=== PATIENT | female | born 1965 | race Caucasian/White ===

== ENCOUNTER 2019-09-05 19:02 | Emergency (ER) | payer OTHER, SELFPAY ==
--- NOTE | ~2019-09-05 | XR_ITS ---
EXAMINATION: XR foot LT min 3V DATE: 09/05/2019 19:32 INDICATION: Left foot lateral pain. TECHNIQUE: 4 views of left foot were obtained. COMPARISON: None. FINDINGS: Bone alignment is normal. No fracture. Joint spaces are well maintained. There are enthesop hytes at the posterior and plantar aspects of calcaneal tuberosity. IMPRESSION: 1. No fracture. Reviewed, dictated and finalized at location A. IMPRESSION: 1. No fracture.
[2019-09-05 19:14] VITALS: BP 142/73; PULSE 81; RESP 16; TEMP 36.1; O2SAT 97
--- NOTE | 2019-09-05 19:18 | ED.EXTPRO ---
HPI - Extremity Problem General Chief complaint: Extremity Problem,Nontraumatic Stated complaint: left foot,right knee pain Time Seen by Provider: 09/05/19 19:18 Source: patient Mode of arrival: ambulatory Limitations: no limitations History of Present Illness HPI Narrative: Greta Lees is a 54 yo female with a PMH of depression, hypothyroid,neuropathy, chronic back pain,HSV suppression, who has had R knee pain for months and L foot lateral pain with walking after foot snapped on Thurs. has had some left foot pain prior to this incident. Mild swelling of left lateral foot; will see orthopedist with R knee pain (has had menisectomy on both) Related Data Home Medications Medication Instructions Recorded Confirmed cyclosporine [Restasis] 0.05 % DAILY 09/05/19 09/05/19 duloxetine 30 mg PO DAILY 09/05/19 09/05/19 estradiol 2 mg DAILY 09/05/19 09/05/19 folic acid 1 mg DAILY 09/05/19 09/05/19 hydrochlorothiazide 50 mg DAILY 09/05/19 09/05/19 levothyroxine [Synthroid] 75 mcg DAILY 09/05/19 09/05/19 meloxicam 15 mg DAILY 09/05/19 09/05/19 prednisone 5 mg DAILY 09/05/19 09/05/19 progesterone micronized 200 mg DAILY 09/05/19 09/05/19 sertraline 100 mg DAILY 09/05/19 09/05/19 valacyclovir 500 mg DAILY 09/05/19 09/05/19 Allergies Allergy/AdvReac Type Severity Reaction Status Date / Time codeine Allergy Unknown HEART Verified 09/05/19 19:08 PALPITATION ketorolac Allergy Unknown Anaphylactic Verified 09/05/19 19:35 Shock morphine Allergy Unknown HEART Verified 09/05/19 19:08 PALPITATION Sulfa (Sulfonamide Allergy Unknown Anaphylactic Verified 09/05/19 19:35 Antibiotics) Shock Review of Systems Review of Systems: Narrative: CONSTITUTIONAL: Denies fever, chills, sweats. EYES: Denies visual changes, redness, discharge. ENT: Denies rhinorrhea, congestion, sore throat, otalgia. CARDIOVASCULAR: Denies chest pain, palpitations, edema. RESPIRATORY: Denies dyspnea, wheezing, cough GASTROINTESTINAL: Denies abdominal pain, nausea, vomiting, diarrhea. GENITOURINARY: Denies dysuria, hematuria, abnormal discharge SKIN: Denies rash or itching. NEUROLOGIC: Denies numbness, or focal weakness. PSYCHIATRIC: Denies anxiety or depression. Left foot pain lateral dorsum; right knee pain PMFSH Past Medical History Medical History (Updated 09/05/19 @ 19:42 by Zoya Centeno CNP) HSV (herpes simplex virus) infection Family History Family History Other High cholesterol Social History Social History Smoking status: Never smoker Substance use: never Gender identity (if verbalized by the patient): Female Comments At time of signature, I agree with nursing past medical, surgical, social and family history. There is no relevant family history pertinent to the presenting complaint. At this visit recommended that she follow-up with her primary care physician Exam Narrative: Exam Narrative: GENERAL: This is a well-nourished, well-developed patient, in mild distress. HEAD: normocephalic, atraumatic. EYES:Sclera clear/white. Vision is grossly intact. EARS: External ears normal,. Hearing grossly intact. NOSE: External nose normal without nasal discharge, nares without redness, no rhinorrhea. THROAT: Mucous membranes moist, NECK: Neck supple, CARDIOVASCULAR: Regular rate and rhythm without murmurs, gallops, or rubs. RESPIRATORY: Clear to auscultation. Breath sounds equal bilaterally. No wheezes, rales, or rhonchi. GASTROINTESTINAL: Abdomen soft, SKIN: warm, intact with no suspicious lesions or rash, good texture and turgor. NEURO: awake, alert, and oriented to person, place and time. There were no obvious focal neurologic abnormalities. Steady gait EXTREMITIES: Normal range of motion. Describes right medial knee pain; walks without difficulty. Pain on lateral left foot on dorsum with mild swelling and te
== END 2019-09-05 19:59 | disposition home or self-care (01) ==
PROVIDERS: Emergency Provider Nurse Practitioner
DX: M79.672 Pain in left foot (principal); E03.9 Hypothyroidism, unspecified
CPT/HCPCS: 73630; 99213; G0463

== ENCOUNTER → 2020-07-19 11:54 | Outpatient (CLI) | payer OTHER, SELFPAY ==
--- NOTE | ~2020-07-19 | XR_ITS ---
EXAMINATION: XR hand LT 2V DATE: 07/19/2020 12:16 INDICATION: Psoriatic arthritis. TECHNIQUE: 2 views of left hand were obtained. COMPARISON: None. FINDINGS: Bone alignment is normal. No fracture. There is mild osteoarthritis of triscaphe joint, fir st carpometacarpal joint, and second, third, and fifth distal interphalangeal joints. IMPRESSION: 1. Mild polyarticular osteoarthritis. Reviewed, dictated and finalized at location A.
--- NOTE | ~2020-07-19 | XR_ITS ---
EXAMINATION: XR wrist RT min 3V DATE: 07/19/2020 12:16 INDICATION: Psoriatic arthritis. TECHNIQUE: 4 views of right wrist were obtained. COMPARISON: None. FINDINGS: Bone alignment is normal. No fracture. There is mild osteoarthritis of first carpometacarpa l joint. IMPRESSION: 1. Mild osteoarthritis of first carpometacarpal joint. Reviewed, dictated and finalized at location A.
--- NOTE | ~2020-07-19 | XR_ITS ---
EXAMINATION: XR wrist LT min 3V DATE: 07/19/2020 12:16 INDICATION: Psoriatic arthritis. TECHNIQUE: 4 views of left wrist were obtained. COMPARISON: None. FINDINGS: Bone alignment is normal. No fracture. There is mild osteoarthritis of triscaphe joint and first carpometacarpal joint. IMPRESSION: 1. Mild polyarticular osteoarthritis. Reviewed, dictated and finalized at location A.
--- NOTE | ~2020-07-19 | XR_ITS ---
EXAMINATION: XR hand RT 2V DATE: 07/19/2020 12:16 INDICATION: Psoriatic arthritis. TECHNIQUE: 2 views of right hand were obtained. COMPARISON: None. FINDINGS: Bone alignment is normal. No fracture. There is mild osteoarthritis of first carpometacarpa l joint, first interphalangeal joint, fifth proximal interphalangeal joint, and second and fifth dist al interphalangeal joints. IMPRESSION: 1. Mild polyarticular osteoarthritis. Reviewed, dictated and finalized at location A.
== END ==
DX: L40.50 Arthropathic psoriasis, unspecified (principal); M89.49 Other hypertrophic osteoarthropathy, multiple sites
CPT/HCPCS: 73110; 73120

== ENCOUNTER → 2021-10-12 11:07 | Outpatient (CLI) | payer OTHER, SELFPAY ==
--- NOTE | ~2021-10-12 | XR_ITS ---
XR foot LT min 3V DATE: 10/12/2021 13:07 INDICATION: Left ankle and foot pain TECHNIQUE: 4 views COMPARISON: 09/05/2019 left foot FINDINGS: There is mild plantar and posterior calcaneal enthesopathy without associated erosive alberto e or periostitis. Mild osteoarthritis at the first metatarsophalangeal joint. No fracture, dislocation, periosteal reaction or bone destruction. IMPRESSION: Mild plantar and posterior calcaneal enthesopathy Mild osteoarthritis at the first metatarsophalangeal joint Reviewed, dictated and finalized at location B.
--- NOTE | ~2021-10-12 | XR_ITS ---
XR ankle LT min 3V DATE: 10/12/2021 13:07 INDICATION: Left ankle pain TECHNIQUE: 3 views COMPARISON: None FINDINGS: No fracture or dislocation of the ankle or disruption of the ankle mortise. Minimal distal Achilles tendon calcification. Mild plantar and minimal posterior calcaneal enthesopathy. IMPRESSION: Minimal distal Achilles tendon calcification Plantar and posterior calcaneal enthesopathy Reviewed, dictated and finalized at location B.
--- NOTE | ~2021-10-12 | XR_ITS ---
XR_CERV2-3V_CR DATE: 10/12/2021 13:06 INDICATION: Neck pain TECHNIQUE: Standing AP, lateral, open-mouth and swimmer views COMPARISON: 12/07/2014 cervical spine FINDINGS: C1 and C2 are normally aligned and the odontoid process is intact. Moderate degenerative disc disease at C2-3. Mild anterolisthesis at C4-5. Moderately severe degenerative disc disease at C5-6 and C6-7, with anterior and posterior spurring. Uncovertebral joint spurring is noted in particular at C5-6 and C6-7. Prominent degenerative change o f the apophyseal joints of the cervical spine. No fracture or dislocation or locked facet or prevertebral soft tissue swelling. IMPRESSION: Cervical spondylosis including moderately severe degenerative disc disease and uncoverteb ral joint spurring at C5-6 and C6-7, mild anterolisthesis at C4-5 Reviewed, dictated and finalized at Location A. Reviewed, dictated and finalized at location B. IMPRESSION: Cervical spondylosis including moderately severe degenerative disc disease and uncovertebral joint spurring at C5-6 and C6-7, mild anterolisthesis at C4-5
--- NOTE | ~2021-10-12 | XR_ITS ---
XR thoracic spine 2V DATE: 10/12/2021 13:06 INDICATION: Mid back pain TECHNIQUE: AP, lateral views COMPARISON: 10/12/2021 cervical spine including swimmer's projection FINDINGS: Osteopenia. Mild levoscoliosis of the thoracic spine. The thoracic pedicles are intact. No fracture or bone destruction. There is mild to moderate degenerative spurring particularly in the midthoracic region. No paraspinal soft tissue thickening. IMPRESSION: Mild to moderate spurring of the thoracic spine involving particularly the mid thoracic r egion Mild levoscoliosis Osteopenia Reviewed, dictated and finalized at location B. IMPRESSION: Mild to moderate spurring of the thoracic spine involving particula rly the mid thoracic region Mild levoscoliosis Osteopenia
--- NOTE | ~2021-10-12 | XR_ITS ---
XR lumbar spine 2-3V DATE: 10/12/2021 13:07 INDICATION: Low back pain TECHNIQUE: AP, lateral and coned lateral lumbosacral standing views COMPARISON: 12/07/2014 lumbar spine FINDINGS: There is mild thoracolumbar dextroscoliosis. The lumbar vertebrae are normally aligned, wit hout evidence of fracture or bone destruction. The lumbar pedicles are intact. There is mild degenerative disc disease is slight spurring at L2-3, L3-4. There is moderate degenerative disease at L4-5. Mild loss of disc space height at L5-S1. The sacroiliac joints are normal. IMPRESSION: Mild to moderate degenerative disc disease of the lumbar spine Mild thoracolumbar dextroscoliosis Reviewed, dictated and finalized at location B.
== END ==
PROVIDERS: PCP Internal Medicine; Visit Provider Chiropractor
DX: M19.072 Primary osteoarthritis, left ankle and foot (principal); M41.9 Scoliosis, unspecified; M47.817 Spondylosis without myelopathy or radiculopathy, lumbosacral region; M47.815 Spondylosis without myelopathy or radiculopathy, thoracolumbar region; M77.32 Calcaneal spur, left foot; M47.812 Spondylosis without myelopathy or radiculopathy, cervical region
CPT/HCPCS: 72040; 72070; 72100; 73610; 73630

== ENCOUNTER → 2021-11-05 11:09 | Outpatient (CLI) | payer OTHER, SELFPAY ==
--- NOTE | ~2021-11-05 | DEXA_ITS ---
Bone Density Report Name: FAVIO CHEW Age: 56 Sex: Female Ethnicity: White Date of : 1965 Indication: postmenopausal; screening for osteoporosis; height loss; history of glucocorticoids; hysterectomy; Referring Provider: Mateusz, Thao Bunch Study: Bone densitometry was performed. Exam Date: November 05, 2021 Accession number: [id number] Bone Density: Region BMD T-score Z-score Classification AP Spine (L1-L4) 1.094 0.4 1.7 Normal Femoral Neck (Left) 0.805 -0.4 0.8 Normal Total Hip (Left) 1.022 0.7 1.5 Normal Femoral Neck (Right) 0.823 -0.2 1.0 Normal Total Hip (Right) 0.988 0.4 1.2 Normal Total Hip Mean 1.005 0.6 1.4 Normal World Health Organization criteria for BMD impression classify patients as: Normal (T-score at or above -1.0), Osteopenia (T-score between -1.0 and -2.5), or Osteoporosis (T-score at or below -2.5). 10-year Fracture Risk: FRAX not reported because: All T-scores for Spine Total, Hip Total, Femoral Neck at or above -1.0 Clinical Information Provided by Patient: Has taken Glucocorticoids Has the following medical conditions: Hysterectomy Patient maximum height was 68.5 Menopause Age: 41 No regular weight bearing exercise Does not regularly consume dairy products Drinks caffeinated beverages Onset of menses at age 10 Number of children 2 Impression: The patient has normal bone mass. The patient has risk factors, including: history of glucocorticoid therapy. Discussion: BONE DENSITY IS ABOVE THE MINIMUM DESIRABLE LEVEL AT ALL SKELETAL SITES TESTED. This patient?s bone mineral density is above the minimum desirable level (T-score -1.0 or better) at all sites measured. The patient should follow a healthful lifestyle (good nutrition with adequate calcium and vitamin D, and appropriate weight-bearing exercise). Follow-Up: Consider repeating this study in 5 years or sooner if there is some new clinical indication. Reported by: MELISSA on 11/05/2021 11:27:00 AM. Reviewed, dictated and finalized at location [facility]
== END ==
PROVIDERS: PCP Physician Assistant; Visit Provider Internal Medicine Endocrinology, Diabetes & Metabolism
DX: N95.1 Menopausal and female climacteric states (principal)
CPT/HCPCS: 77080

== ENCOUNTER 2022-04-16 11:26 | Outpatient (CLI) | payer OTHER, SELFPAY ==
--- NOTE | ~2022-04-16 | XR_ITS ---
Clinical Indication: Shortness of breath PA and lateral views of the chest: Comparison: None Findings: The lungs are clear, without evidence of focal consolidation or pleural effusion. Cardiome diastinal silhouette is within normal limits. Bones and soft tissues are unremarkable. Impression: Normal chest. Reviewed, dictated and finalized at [facility]. NE RIGGER Impression: Normal chest.
== END 2022-04-16 11:27 ==
LOC: MICIMG 11:30
PROVIDERS: PCP Physician Assistant; Visit Provider Physician Assistant
DX: R06.02 Shortness of breath (principal); R05.9 Cough, unspecified
CPT/HCPCS: 71046

== ENCOUNTER → 2023-01-06 10:56 | Outpatient (CLI) | payer OTHER, SELFPAY ==
--- NOTE | ~2023-01-06 | XR_ITS ---
EXAMINATION: XR cervical spine 4-5V DATE: 01/06/2023 11:53 INDICATION: Neck pain. TECHNIQUE: 7 views of cervical spine including standing views and flexion and extension views were ob tained. COMPARISON: Cervical spine radiographs 10/12/2021 FINDINGS: There is 2 mm retrolisthesis of C5 on C6. There is kyphosis of lower cervical spine. There is no abnormal motion with flexion or extension. Vertebral body heights are normal. There is mildly d ecreased disc height at C4-C5 and severely decreased disc height at C5-C6 and C6-C7. There is ankylos is of the facet joints at C2-C3. There is multilevel facet joint osteoarthritis, severe on the right at C3-C4 and on the left at C4-C5. There is multilevel uncovertebral joint osteoarthritis, severe lien aterally at C5-C6 and C6-C7. There is mild central canal stenosis at C5-C6 and C6-C7. No prevertebral soft tissue swelling. IMPRESSION: 1. Severe cervical spondylosis. 2. Ankylosis of the facet joints at C2-C3. Reviewed, dictated and finalized at location E.
== END ==
PROVIDERS: PCP Chiropractor; Visit Provider Chiropractor
DX: M54.2 Cervicalgia (principal); M43.02 Spondylolysis, cervical region; M43.22 Fusion of spine, cervical region
CPT/HCPCS: 72050

== ENCOUNTER → 2023-01-10 10:13 | Outpatient (CLI) | payer OTHER, SELFPAY ==
--- NOTE | ~2023-01-10 | XR_ITS ---
Lumbosacral Spine: AP and lateral views Clinical History: Pain Findings: The normal lordotic curve is maintained. The vertebral bodies and posterior elements are i ntact. There is advanced facet arthropathy at L4-L5 and L5-S1. There is mild to moderate facet arthro prema in the upper lumbar spine. There is mild degenerative disc narrowing at L4-L5 and L5-S1. The sa croiliac joints are normally outlined. Impression: Moderate to advanced degenerative spondylosis of the lower lumbar spine. Please see details above. Reviewed, dictated and finalized at location M. Impression: Moderate to advanced degenerative spondylosis of the lower lumbar spine. Please see details above.
--- NOTE | ~2023-01-10 | XR_ITS ---
Thoracic spine: Clinical Indication: Back pain AP and lateral views were performed. No fracture is seen. There is normal alignment of the vertebrae. The intervertebral disc spaces appe ar normal. Paravertebral soft tissues appear normal. Impression: No significant abnormalities noted. Reviewed, dictated and finalized at [facility]. Impression: No significant abnormalities noted.
== END ==
PROVIDERS: PCP Physician Assistant; Visit Provider Chiropractor
DX: M43.06 Spondylolysis, lumbar region (principal)
CPT/HCPCS: 72070; 72100

== ENCOUNTER 2024-10-06 11:33 | Outpatient (CLI) | payer OTHER, SELFPAY ==
--- NOTE | ~2024-10-06 | XR_ITS ---
Thoracic spine: Clinical Indication: Back pain AP and lateral views were performed. No fracture is seen. There is normal alignment of the vertebrae. The intervertebral disc spaces appe ar normal. Paravertebral soft tissues appear normal. Impression: No significant abnormalities noted. Reviewed, dictated and finalized at [facility]. Impression: No significant abnormalities noted.
--- NOTE | ~2024-10-06 | XR_ITS ---
Cervical Spine: AP, lateral, open-mouth views Clinical History: Pain Findings: The normal lordotic curve is maintained. The vertebral bodies and posterior elements appea r intact. There is moderate to advanced degenerative disc narrowing at C5-C6 and C6-7. There is moder ate facet arthropathy throughout the cervical spine. No stability in flexion or extension.. Pre-verte bral soft tissues are unremarkable. Impression: Moderate degenerative spondylosis, as above. Reviewed, dictated and finalized at location M. Impression: Moderate degenerative spondylosis, as above.
== END 2024-10-06 11:34 | disposition home or self-care (01) ==
PROVIDERS: PCP Family Medicine; Visit Provider Chiropractor
DX: M47.892 Other spondylosis, cervical region (principal)
CPT/HCPCS: 72050; 72070